=== PATIENT | male | born 1980 | race Caucasian/White ===

== ENCOUNTER → 2016-08-09 | Outpatient (REF) | LOC: WSOH 08:44 | DX: Z00.00 Encounter for general adult medical examination without abnormal findings (principal) ==

== ENCOUNTER 2020-09-23 00:05 | Inpatient (IN) | payer OTHER ==
[2020-09-23] VITALS (184 sets, daily range): BP systolic 107–143; BP diastolic 57–68; PULSE 84–108; TEMP 98.1–98.5; O2SAT 90–97
[~2020-09-23] VITALS: Ht 175.3 cm; Wt 101.8 kg
[2020-09-23 05:07] LABS: BASO % 0.4 % (0.0-2.0); EOS % 0.1 % (0-4.0); GRAN # 7.3 (1.4-6.5); GRAN % 86.8 % (42.2-75.2); HEMATOCRIT 41.6 % (42.0-52.0); HEMOGLOBIN 14.2 g/dl (13.5-18.0); LYMPH # 0.5 (1.2-3.4); LYMPH % 5.5 % (20.0-51.0); MEAN CELL VOLUME 84 fl (80.0-100.0); MEAN CORPUSCULAR HEMOGLOBIN 29 pg (27.0-31.0); MEAN CORPUSCULAR HGB CONC 34 g/dl (33.0-37.0); MEAN PLATELET VOLUME 9.9 fl (7.4-10.4); MONO # 0.6 (0.1-0.6); PLATELET COUNT 242 K/mm3 (130-400); RED BLOOD COUNT 4.95 M/mm3 (4.20-5.60); REDCELL DISTRIBUTION WIDTH-CV 12.1 % (11.5-14.5)
[2020-09-23 05:25] LABS: ALBUMIN 4.3 gm/dL (3.5-5.0); BILIRUBIN,TOTAL 0.3 mg/dL (0.0-1.0); CALCIUM 8.6 mg/dL (8.4-10.2); CREATININE, serum 0.87 (0.66-1.25); POTASSIUM 3.9 mmol/L (3.4-5.0); TOTAL PROTEIN 7.5 gm/dL (6.4-8.2)
--- NOTE | 2020-09-23 07:00 | NUR ---
RECEIVED REPORT FROM FELICITA REYNOSO. PT RESTING EASILY ON 4L VIA NC. VSS. CALL LIGHT AND URINAL WITHIN REACH.
[2020-09-23 08:16] LABS: ARTERIAL BLD GAS O2 SATURATION 96.3 % (92-100); ARTERIAL BLD GAS TCO2 CT 23.1; ARTERIAL BLOOD GAS BASE EXCESS -3.1 (-2-2); ARTERIAL BLOOD GAS HCO3 21.9 meq/L (22-26); ARTERIAL BLOOD GAS PCO2 39.4 mmHg (35-45); ARTERIAL BLOOD GAS pH 7.36 (7.35-7.45)
--- NOTE | 2020-09-23 08:24 | NUR ---
DR SWEENEY AT BEDSIDE FOR ASSESSMENT.
[2020-09-23 08:37] LABS: COLLECTION METHOD CLEAN CATCH
[2020-09-23 08:47] LABS: MUCOUS Present /lpf; PH 5 (5-8); SQUAMOUS EPITHELIAL None Seen /hpf; URINE APPEARANCE Clear; URINE BACTERIA None Seen /hpf; URINE BILIRUBIN Negative (NEGATIVE); URINE BLOOD Negative (NEGATIVE); URINE COLOR Yellow; URINE GLUCOSE Negative (NEGATIVE); URINE KETONE Negative (NEGATIVE); URINE LEUKOCYTE ESTERASE Negative (NEGATIVE); URINE NITRATE Negative (NEGATIVE); URINE PROTEIN(semi-quant) Negative (NEGATIVE); URINE RBC None Seen /hpf; URINE UROBILINOGEN Negative (NEGATIVE)
--- NOTE | 2020-09-23 09:15 | NUR ---
PT PLACED ON RA AT THIS TIME. DENIES ANY SHOB OR AIR HUNGER.
--- NOTE | 2020-09-23 13:43 | NUR ---
REPORT GIVEN TO FELICITA WEAVER ON MEDICAL. PT TO TRANSFER VIA WC TO [facility] ON RA. ALL PERSONAL BELONGINGS SENT WITH PT.
--- NOTE | 2020-09-23 14:10 | NUR ---
Report recieved from FELICITA Henning. Allergies and pharmacy preference reviewed. Upon assessment of patient, lungs were clear to auscultation, bowel sound present in all four quadrandts, pedal and radial pulses +2 bilaterally, normal S1 and S2 sounds present, patient was tachy. Patient A&O and not deemed to be a fall risk. Clyndamycin running as ordered. VSS. Will continue to monitor. Call light within reach.
--- NOTE | 2020-09-23 17:56 | NUR ---
Patient has had an uneventful day. Has been resting in bed since his transfer up from ICU. Patient denies any pain, discomfort, or further needs at this time. Will continue to monitor. Call light within reach.
--- NOTE | 2020-09-23 23:08 | NUR ---
ALERT AND OX4. ASSESSMENT DONE. NO C/O PAIN, SOA OR DIZZY. SLIGHT IRRITATION IN THROAT BUT TOLERABLE. ANTIBOITCS INFUSED. POC DISCUSSED. UP IND IN ROOM. CALL LIGHT WI REACH. NEEDS MET.
[2020-09-24 04:15] VITALS: BP 119/62; PULSE 78; TEMP 97.8
--- NOTE | 2020-09-24 04:43 | NUR ---
RESTED THROUGH THE NIGHT WITHOUT INCIDENT. NEEDS MET.
[2020-09-24 06:41] LABS: BASO % 0.2 % (0.0-2.0); EOS % 0.4 % (0-4.0); GRAN # 5.2 (1.4-6.5); GRAN % 64.7 % (42.2-75.2); HEMOGLOBIN 12.3 g/dl (13.5-18.0); LYMPH # 2.1 (1.2-3.4); LYMPH % 26.7 % (20.0-51.0); MEAN CELL VOLUME 87 fl (80.0-100.0); MEAN CORPUSCULAR HEMOGLOBIN 30 pg (27.0-31.0); MEAN CORPUSCULAR HGB CONC 34 g/dl (33.0-37.0); MEAN PLATELET VOLUME 10.4 fl (7.4-10.4); MONO # 0.6 (0.1-0.6); MONO % 7.6 % (1.7-9.3); PLATELET COUNT 197 K/mm3 (130-400); RED BLOOD COUNT 4.13 M/mm3 (4.20-5.60); REDCELL DISTRIBUTION WIDTH-CV 12.5 % (11.5-14.5)
[2020-09-24 06:46] LABS: HEMATOCRIT 35.9 % (42.0-52.0)
[2020-09-24 06:53] LABS: CALCIUM 8.3 mg/dL (8.4-10.2); CREATININE, serum 0.82 (0.66-1.25)
[2020-09-24 06:55] LABS: POTASSIUM 3.7 mmol/L (3.4-5.0)
--- NOTE | 2020-09-24 07:04 | NUR ---
Patient lying in bed at this time. Does not C/O any pain, discomfort, or futher needs at this time. Will continue to monitor. Call light within reach.
--- NOTE | 2020-09-24 07:32 | NUR ---
PT REFUSING BREATHING TXS. RA 91%
[2020-09-24] MEDS ORDERED: PROTONIX 40MG T40 MG PO (07:44)
[2020-09-24 07:45] VITALS: BP 116/60; PULSE 79; TEMP 97.8
--- NOTE | 2020-09-24 08:10 | NUR ---
Scheduled meds given. Assessments performed. Patient denies any pain except for a sore throat. Denies any further needs at this time. Will continue to monitor. Call light in reach.
[2020-09-24] MEDS ORDERED: PROBIOTIC ACID1 EAC3 PO (08:40)
[2020-09-24] MEDS ORDERED: CLEOCIN HCL300 MG PO ×2 (08:42)
--- NOTE | 2020-09-24 10:08 | NUR ---
Patient being discharged home with family. VSS. IV DC'd catheter intact, no signs of phlebitis. Discharge education/instructions given to patient. Patient denies any question or concerns. Clindamycin prescription sent to [facility]. Patient escorted from the building by [facility] staff.
--- NOTE | 2020-09-24 10:15 | NUR ---
Plan is to retrun home in [facility]. Client shares that he has no needs. Patient rpeorts that his PCP is Vladislav Brower andhe uses RX for medications. SW met with patient and DTR in room. Patient reports that he has transportation home and no concerns for DME or Home supports. No needs identified. NF
== END 2020-09-24 10:13 | disposition home or self-care (01) | DRG 177 ==
LOC: ICU 05:12 → MEDICAL 14:07
PROVIDERS: Internal Medicine Gastroenterology; Student in an Organized Health Care Education/Training Program; ADMIT Internal Medicine
PROC: 0DB38ZX Excision of Lower Esophagus, Via Natural or Artificial Opening Endoscopic, Diagnostic (ICD-10-PCS; 2020-09-23)
PROC: 0DB18ZX Excision of Upper Esophagus, Via Natural or Artificial Opening Endoscopic, Diagnostic (ICD-10-PCS; 2020-09-23)
PROC: 0DC58ZZ Extirpation of Matter from Esophagus, Via Natural or Artificial Opening Endoscopic (ICD-10-PCS; principal; 2020-09-23 01:00)
DX: J69.0 Pneumonitis due to inhalation of food and vomit (principal); J96.01 Acute respiratory failure with hypoxia; K21.9 Gastro-esophageal reflux disease without esophagitis; R11.2 Nausea with vomiting, unspecified
CPT/HCPCS: 99223-AI; 99239; J0295; J0330; J1100; J1650; J1885; J2405; J2704; J3010; J7030